=== PATIENT | male | born 2000 | race Caucasian/White ===

== ENCOUNTER 2024-01-19 21:46 | Emergency (ER) | payer OTHER ==
[~2024-01-19] VITALS: Ht 180.3 cm; Wt 64.0 kg
[2024-01-19] MEDS ORDERED: KETOROLAC 30MG/ML VIAL IM ONE (22:30)
[2024-01-19] MEDS: SODIUM CHLORIDE 0.9% 1,000 ML IV ONE (23:07)
[2024-01-19] MEDS: ACETAMINOPHEN 1000MG/100ML 100 ML IV ONE (23:07)
[2024-01-19] MEDS ORDERED: NAPR-420 MT (23:36)
[2024-01-19 23:54] VITALS: O2SAT 99
[2024-01-20] MEDS: PROPOFOL 200MG/20ML VIAL IV ONE (00:10)
[2024-01-20 01:36] VITALS: TEMP 36.66960; O2SAT 99
[2024-01-20 01:47] VITALS: BP 125/75; PULSE 71; RESP 12
[2024-01-20] MEDS: KETOROLAC 30MG/ML VIAL IM NR (01:47)
== END 2024-01-20 04:42 | disposition home or self-care (01) ==
LOC: ER 21:46
DX: S43.004A Unspecified dislocation of right shoulder joint, initial encounter (principal); W01.0XXA Fall on same level from slipping, tripping and stumbling without subsequent striking against object, initial encounter; Y93.89 Activity, other specified; Y92.89 Other specified places as the place of occurrence of the external cause; Y99.8 Other external cause status
CPT/HCPCS: 73030; 23650; 96365; 99152; 99285; J2704; J7030; Z7610 ×2; J0131

== ENCOUNTER 2024-02-22 12:07 | Emergency (ER) | payer OTHER ==
[~2024-02-22] VITALS: Ht 175.3 cm; Wt 62.5 kg
[~2024-02-22 12:07] MED LIST: NAPR-420 MT
[2024-02-22] MEDS: HYDROCODONE/ACETAMINOPHEN 5/325MG TABLET PO ONE (12:52)
[2024-02-22 13:51] VITALS: O2SAT 99
[2024-02-22] MEDS: MIDAZOLAM HCL 2 MG/2 ML VIAL IM ONE (13:51)
[2024-02-22] MEDS ORDERED: PROPOFOL 200MG/20ML VIAL IV PRN (14:30)
[2024-02-22] MEDS: ONDANSETRON HCL 4MG/2ML INJ IV ONE (14:58)
[2024-02-22 16:57] VITALS: BP 130/72; PULSE 72; RESP 16; TEMP 36.78072; O2SAT 98
== END 2024-02-22 16:55 | disposition home or self-care (01) ==
LOC: ER 12:07
DX: S43.014A Anterior dislocation of right humerus, initial encounter (principal); V00.131A Fall from skateboard, initial encounter; Y93.51 Activity, roller skating (inline) and skateboarding
CPT/HCPCS: 99285; 23650; 96374; 73030; 96372; 99152; 93005; J2250; J2405; J2704; A4565